=== PATIENT | male | born 2000 | race Caucasian/White ===

== ENCOUNTER 2021-02-06 12:52 | Outpatient (REF) | payer OTHER, SELFPAY ==
[2021-02-06 14:09] LABS: Alanine Aminotransferase 14 U/L (0-40); Albumin Level 5.1 g/dL (3.5-5.0); Alkaline Phosphatase 81 U/L (39-117); Anion Gap 16 (12-20); Aspartate Amino Transferase 15 U/L (5-37); Bilirubin Total 0.6 mg/dL (0.0-1.0); Blood Urea Nitrogen 19 mg/dL (9-16); Calcium 9.6 mg/dL (8.4-10.2); Carbon Dioxide 23 mmol/L (22-29); Chloride 103 mmol/L (96-108); Cholesterol 158 mg/dL; Estimated Glomerular Filt Rate > 60; Glucose Fasting 92 mg/dL (60-99); HDL Cholesterol 35 mg/dL; LDL Cholesterol Calculated 112 mg/dl; Potassium 4.2 mmol/L (3.3-5.1); Sodium 138 mmol/L (135-145); Total Protein 8.3 g/dL (6.5-8.0); Triglycerides 57 mg/dL
[2021-02-06 14:30] LABS: TSH reflex Free T4 1.37 uIU/mL (0.32-4.0)
== END 2021-02-06 12:53 | disposition home or self-care (01) ==
LOC: HO.WFDLDS 12:52
PROVIDERS: Visit Provider Family Medicine
DX: Z00.00 Encounter for general adult medical examination without abnormal findings (principal)
CPT/HCPCS: 36415; 80053; 80061; 84443

== ENCOUNTER 2023-05-16 13:49 | Outpatient (REF) | payer OTHER, SELFPAY | END 2023-05-16 13:50 | disposition home or self-care (01) | LOC: HO.LAB 13:49 | PROVIDERS: PCP Family Medicine; Visit Provider Family Medicine | DX: Z00.00 Encounter for general adult medical examination without abnormal findings (principal); Z20.2 Contact with and (suspected) exposure to infections with a predominantly sexual mode of transmission | CPT/HCPCS: 36415; 80053; 80061; 81003; 84443; 85025 ==

== ENCOUNTER 2023-06-04 16:21 | Outpatient (AMB) | payer OTHER, SELFPAY ==
[2023-06-04 16:26] VITALS: BP 112/64; PULSE 106; RESP 12; TEMP 36.9; O2SAT 98; BMI 26.0
--- NOTE | 2023-06-04 16:26 | A.OFFPC_ITS ---
Vital Signs 06/04/23 16:26 Height 5 ft 9 in Weight 176 lb 4 oz BMI 26.0 BP 112/64 Blood Pressure Location Rt brachial Position Sitting Respiration 12 Pulse 106 H Pulse Source Pulse Oximeter Temp 98.4 F Temp Source Temporal Artery Scan Pulse Oximetry (%) 98 Oxygen Delivery Method Room Air Intake Visit Reasons: f/u medication Intake Note: Patient states they want up the dose or add another medication for his anxiety. Patient's mother states that his panic attacks are getting worse. Patient would like to try Buspirone or low dose Ativan to help if needed. Patient states that he has been having low energy due to medications not being as effective anymore. [facility] Required: No Accompanied by: Mother Allergies diphenhydramine [From BENADRYL] Allergy (Unknown, Verified 06/04/23 16:49) PANIC ATTACK Medication List - Last Reconciled 06/04/23 by Vadim Patel CNP loratadine (Claritin) 10 mg PO DAILY melatonin 3 mg PO BEDTIME PRN sertraline 100 mg PO DAILY 30 days Tobacco use date assessed: 06/04/23 Dental Screening Dental Screen Date: 06/04/23 Did you have a dental visit in the last 12 months?: No Did you have a dental problem in the last 6 months where you did not have access to dental care?: No Was dental information given to patient?: Patient has dentist HPI HPI Comments History of Present Illness Details 23-year-old male, accompanied by his mother, presents for anxiety follow-up. His mother states that the patient has increased panic attacks and low energy level. Patients states that his symptoms have worsened for the past 3 months. His mother states that the patient has severe anxiety and requests buspirone or low-dose Ativan. She notes that the patient has been on a wait list for a psychiatrist. He is not followed by a therapist and requests a referral to connect to one. [facility] Medical History Anxiety Surgical History No pertinent past surgical history Family History Other Mental health disorder Social History (Reviewed 06/04/23 @ 16:34 by JACKI Lou Housing: House Alcohol intake: never Patient Tobacco Use Status: Never used Tobacco e-Cigarette/Vaping Use: Never Used service: No Current occupational status: employed Current occupation: [employer] Current occupational exposures/hazards: No Cognitive needs: Yes Hearing needs: No Vision needs: Yes Questionnaire PHQ-9 Over the last 2 weeks, how often have you been bothered by any of the following problems? 1. Little interest or pleasure in doing things: more than half the days 2. Feeling down, depressed, or hopeless: several days 3. Trouble falling or staying asleep, or sleeping too much: nearly every day 4. Feeling tired or having little energy: nearly every day 5. Poor appetite or overeating: nearly every day 6. Feeling bad about yourself - or that you are a failure or have let yourself or your family down: several days 7. Trouble concentrating on things, such as reading the newspaper or watching television: not at all 8. Moving or speaking so slowly that other people could have noticed. Or the opposite - being so fidgety or restless that you have been moving around a lot more than usual: several days 9. Thoughts that you would be better off or of hurting yourself in some way: not at all Total score: 14 Depression Screening Interpretation: Positive Depression Screening Follow-up: Existing condition and In treatment Source: Developed by Drs. Ravin Bliss, Malaika Willis, Morris Morgan and colleagues, with an educational kiara from [employer] Thrive Questionnaire Date Thrive assessed: 10/30/22 JARED-7 AMB Questionnaire JARED-7 Date JARED - 7 assessed: 06/04/23 Feeling nervous, anxious, or on edge: 2 = More than half the days Not being able to stop or control worryin = More than half the days Worrying too much about different things: 2 = More than half the days Trouble relaxin = Not at all Being so restless that it is hard to sit still: 1 = Several days Becoming easily annoyed or irritable: 0 = Not at all Feeling afraid as if something awful might happen: 0 = Not at all Total JARED-7 score (0-4 normal; 5-9 mild; 10-14 moderate; 15-21 severe): 7 Source: Developed by Drs. Ravin Bliss, Malaika Willis, Morris Morgan and colleagues, with an educational kiara from [employer] Review of Systems Const Details: Const Denies chills, Denies fatigue, Denies fever(s), Denies headache(s) and Denies weakness ENT Denies dizziness and Denies headache(s) Card Denies chest pain, Denies lightheadedness, Denies dyspnea and Denies other (Palpitations) Resp Denies cough, Denies dyspnea, Denies wheezing and Denies other ( shortness of breath) GI Denies abdominal pain, Denies melena, Denies hematochezia, Denies change in bowel habits, Denies dyspepsia and Denies nausea Denies hematuria and Denies dysuria Musc Denies abnormal gait, Denies myalgias, Denies arthralgias, Denies numbness and Denies tingling Skin/Breast Denies rash, Denies unusual bruising and Denies wounds Neuro Denies abnormal gait, Denies dizziness, Denies headache(s), Denies memory loss, Denies numbness, Denies Sensory deficit (Neuro), Denies tingling and Denies weakness Psych Reports anxiety and Reports depression Endo Denies fatigue Aller/Immun Denies wheezing Physical exam (Primary Care) Vital Signs: Last Vital Signs Temp 98.4 F 06/04/23 16:26 Pulse 106 H 06/04/23 16:26 Resp 12 06/04/23 16:26 BP 112/64 06/04/23 16:26 Pulse Ox 98 06/04/23 16:26 Oxygen Delivery Method Room Air 06/04/23 16:26 BMI result Body Mass Index 26.0 Tobacco/Smoking Status: Tobacco use Status Tobacco use date assessed 06/04/23 06/04/23 16:34 Patient Tobacco Use Status Never used Tobacco 06/04/23 16:34 e-Cigarette/Vaping Use Never Used 06/04/23 16:34 PHQ-9: PHQ-9 Score PHQ-9: Total score 14 06/04/23 16:41 Depression Screening Interpretation: Positive Depression Screening Follow-up: Existing condition and In treatment Thrive Assessment: Date of Thrive Assessment Date Thrive assessed 10/30/22 06/04/23 16:34 Const Other: General: no acute distress and well developed Nutritional Appearance: well nourished Orientation/consciousness: patient oriented x3 HENMT Head: Yes normocephalic and Yes atraumatic Eyes General: appearance normal, both eyes and all related structures Pupils: Equal, round and reactive pupils present EOM: EOMs intact bilaterally Resp Effort & Inspection: normal respiratory effort Auscultation: clear to auscultation bilaterally Cardio Rate: regular rate Rhythm: regular rhythm Heart sounds: S1 normal heart sound present, S2 normal heart sound present, no gallops, no murmurs and no rubs GI Palpation (GI): No Abdominal aortic bruit present, Soft to palpation, nontender, No hepatosplenomegaly present and No Rebound tenderness present Auscultation: normal bowel sounds General: Yes no CVA tenderness Back/Spine/Pelvis Back: no CVA tenderness Cervical Spine: cervical ROM normal and No Cervical spine tenderness Thoracic/Lumbar Spine: thoraco-lumbar ROM normal, No pain with thoraco-lumbar ROM, No thoracic spinal tenderness and No lumbar spinal tenderness Extrem General: Yes normal to inspection, No edema and No calf tenderness Skin General: warm and dry. Normal skin color. Normal skin turgor Lesions: no lesions Rashes: no rashes Trauma: no lacerations or abrasions Wounds: no wounds Nails: normal Neuro General: patient oriented x3, gait normal and no focal neuro deficit Cranial nerves: Yes Equal, round and reactive pupils present Cognition (Neuro): normal cognition Gait exam (Neuro): Normal gait present Sensory Exam: No Sensory deficit (Neuro) Psych Appearance: grossly normal Affect: normal affect Attitude: cooperative Thought process: Normal thought process present Assessment and Plan Assessment & Plan (1) Anxiety and depression: Code(s): F41.9 - Anxiety disorder, unspecified; F32.9 - Major depressive disorder, single episode, unspecified Plan: PHQ-9 and JARED-7 scores revealed moderate depression and mild anxiety respectively Buspirone ordered. Take as prescribed Continue to take sertraline as prescribed Routine exercise encouraged Referred to the community navigator to help him connect to a therapist Recent lab results reviewed with the patient; within normal limits Follow-up with PCP in 1 month or return sooner with worsening or new symptoms Verbalized understanding and agreed with the treatment plan Orders: Referrals Nurse Navigator Referral F32.9 - Major depressive disorder, single episode, unspecified, F41.9 - Anxiety disorder, unspecified Medications: New buspirone 7.5 mg PO BID 60 tabs 3RF 30 days Coding Level of Care Code Est Pt Level 3 (15373) Diagnoses Anxiety and depression F41.9; F32.9
== END 2023-06-04 17:08 | disposition home or self-care (01) ==
PROVIDERS: PCP Family Medicine; Visit Provider Nurse Practitioner Family
DX: F41.9 Anxiety disorder, unspecified (principal); F33.9 Major depressive disorder, recurrent, unspecified
CPT/HCPCS: 99213

== ENCOUNTER 2023-07-03 10:18 | Outpatient (AMB) | payer OTHER, SELFPAY ==
--- NOTE | 2023-07-02 14:32 | ...WebTmpl.AM.PHNO ---
JARED-7 AMB Questionnaire JARED-7 Date JARED - 7 assessed: 07/02/23 Feeling nervous, anxious, or on edge: 2 = More than half the days Not being able to stop or control worryin = Nearly every day Worrying too much about different things: 2 = More than half the days Trouble relaxin = More than half the days Being so restless that it is hard to sit still: 1 = Several days Becoming easily annoyed or irritable: 1 = Several days Feeling afraid as if something awful might happen: 1 = Several days Total JARED-7 score (0-4 normal; 5-9 mild; 10-14 moderate; 15-21 severe): 12 Source: Developed by Drs. Ravin Bliss, Malaika Willis, Morris Morgan and colleagues, with an educational kiara from [employer]. PHQ-9 Over the last 2 weeks, how often have you been bothered by any of the following problems? 1. Little interest or pleasure in doing things: several days 2. Feeling down, depressed, or hopeless: not at all 3. Trouble falling or staying asleep, or sleeping too much: several days (sleeping too much) 4. Feeling tired or having little energy: several days 5. Poor appetite or overeating: more than half the days 6. Feeling bad about yourself - or that you are a failure or have let yourself or your family down: several days 7. Trouble concentrating on things, such as reading the newspaper or watching television: not at all 8. Moving or speaking so slowly that other people could have noticed. Or the opposite - being so fidgety or restless that you have been moving around a lot more than usual: several days 9. Thoughts that you would be better off or of hurting yourself in some way: not at all Total score: 7 Depression Screening Interpretation: Positive Source: Developed by Drs. Ravin Bliss, Morris Steiner and colleagues, with an educational kiara from [employer].
--- NOTE | 2023-07-03 11:04 | MHC.PC.OV ---
Vital Signs 07/03/23 11:26 Height 5 ft 9 in Weight 178 lb BMI 26.3 BP 128/80 Blood Pressure Location Lt brachial Pulse 91 Pulse Source Pulse Oximeter Pulse Oximetry (%) 97 Oxygen Delivery Method Room Air Intake Visit Reasons: f/u anxiety/depression Allergies diphenhydramine [From BENADRYL] Allergy (Unknown, Verified 07/03/23 14:59) PANIC ATTACK Medication List - Last Reconciled 07/03/23 by Vadim Patel CNP buspirone 7.5 mg PO BID 90 days loratadine (Claritin) 10 mg PO DAILY melatonin 3 mg PO BEDTIME PRN sertraline 100 mg PO DAILY 90 days Tobacco use date assessed: 06/04/23 HPI HPI Comments History of Present Illness Details 23-year-old male, accompanied by his mother, presents for anxiety and depression follow-up. He is on sertraline and Melatonin which he notes he has been taking as prescribed. He notes that he noticed some improvement of his anxiety symptoms. He prefers to continue with current treatment regimen. He states he is expecting to be contacted by [place] to connect to a therapist. He notes that he did not show up for jury duty in August 2022 and has been summoned for a hearing regarding this. He notes he was informed to request a letter from his PCP explaining medical reasons for not showing. ON LICENSE OF [facility] Medical History Anxiety Surgical History No pertinent past surgical history Family History Other Mental health disorder Social History Housing: House Alcohol intake: never Patient Tobacco Use Status: Never used Tobacco e-Cigarette/Vaping Use: Never Used service: No Current occupational status: employed Current occupation: [employer] Current occupational exposures/hazards: No Cognitive needs: Yes Hearing needs: No Vision needs: Yes Questionnaire PHQ-9 Over the last 2 weeks, how often have you been bothered by any of the following problems? 1. Little interest or pleasure in doing things: several days 2. Feeling down, depressed, or hopeless: not at all 3. Trouble falling or staying asleep, or sleeping too much: several days 4. Feeling tired or having little energy: several days 5. Poor appetite or overeating: more than half the days 6. Feeling bad about yourself - or that you are a failure or have let yourself or your family down: several days 7. Trouble concentrating on things, such as reading the newspaper or watching television: not at all 8. Moving or speaking so slowly that other people could have noticed. Or the opposite - being so fidgety or restless that you have been moving around a lot more than usual: several days 9. Thoughts that you would be better off or of hurting yourself in some way: not at all Total score: 7 Depression Screening Interpretation: Positive Depression Screening Follow-up: Existing condition and In treatment 17262 - PHQ-9 Billing: Yes Source: Developed by Drs. Ravin Bliss, Malaika Willis, Morris Morgan and colleagues, with an educational kiara from [employer]. Thrive Questionnaire Date Thrive assessed: 10/30/22 JARED-7 AMB Questionnaire JARED-7 Date JARED - 7 assessed: 07/03/23 Feeling nervous, anxious, or on edge: 2 = More than half the days Not being able to stop or control worryin = Nearly every day Worrying too much about different things: 2 = More than half the days Trouble relaxin = More than half the days Being so restless that it is hard to sit still: 1 = Several days Becoming easily annoyed or irritable: 1 = Several days Feeling afraid as if something awful might happen: 1 = Several days Total JARED-7 score (0-4 normal; 5-9 mild; 10-14 moderate; 15-21 severe): 12 Source: Developed by Drs. Ravin Bliss, Malaika Willis, Morris Morgan and colleagues, with an educational kiara from [employer]. JARED-7 Assessment Billing JARED-7 Assessment Tool: JARED-7 Assessment 82286 Review of Systems Const Details: Const Denies chills, Denies fatigue, Denies fever(s), Denies headache(s) and Denies weakness ENT Denies dizziness and Denies headache(s) Card Denies chest pain, Denies lightheadedness, Denies dyspnea and Denies other (Palpitations) Resp Denies cough, Denies dyspnea, Denies wheezing and Denies other ( shortness of breath) GI Denies abdominal pain, Denies melena, Denies hematochezia, Denies change in bowel habits, Denies dyspepsia and Denies nausea Denies hematuria and Denies dysuria Musc Denies abnormal gait, Denies myalgias, Denies arthralgias, Denies numbness and Denies tingling Skin/Breast Denies rash, Denies unusual bruising and Denies wounds Neuro Denies abnormal gait, Denies dizziness, Denies headache(s), Denies memory loss, Denies numbness, Denies Sensory deficit (Neuro), Denies tingling and Denies weakness Psych Reports anxiety, Reports depression, Denies memory loss Endo Denies cold intolerance, Denies fatigue, Denies heat intolerance, Denies polydipsia and Denies polyuria Aller/Immun Denies wheezing Physical exam (Primary Care) Vital Signs: Last Vital Signs Pulse 91 07/03/23 11:26 BP 128/80 07/03/23 11:26 Pulse Ox 97 07/03/23 11:26 Oxygen Delivery Method Room Air 07/03/23 11:26 BMI result Body Mass Index 26.3 Tobacco/Smoking Status: Tobacco use Status Tobacco use date assessed 06/04/23 07/03/23 11:04 Patient Tobacco Use Status Never used Tobacco 07/03/23 11:04 e-Cigarette/Vaping Use Never Used 07/03/23 11:04 PHQ-9: PHQ-9 Score PHQ-9: Total score 7 07/03/23 11:28 Depression Screening Interpretation: Positive Depression Screening Follow-up: Existing condition and In treatment Thrive Assessment: Date of Thrive Assessment Date Thrive assessed 10/30/22 07/03/23 11:04 Const Other: General: no acute distress and well developed Nutritional Appearance: well nourished Orientation/consciousness: patient oriented x3 HENMT Head: Yes normocephalic and Yes atraumatic Eyes General: appearance normal, both eyes and all related structures Pupils: Equal, round and reactive pupils present EOM: EOMs intact bilaterally Resp Effort & Inspection: normal respiratory effort Auscultation: clear to auscultation bilaterally Cardio Rate: regular rate Rhythm: regular rhythm Heart sounds: S1 normal heart sound present, S2 normal heart sound present, no gallops, no murmurs and no rubs GI Palpation (GI): No Abdominal aortic bruit present, Soft to palpation, nontender, No hepatosplenomegaly present and No Rebound tenderness present Auscultation: normal bowel sounds General: Yes no CVA tenderness Back/Spine/Pelvis Back: no CVA tenderness Cervical Spine: cervical ROM normal and No Cervical spine tenderness Thoracic/Lumbar Spine: thoraco-lumbar ROM normal, No pain with thoraco-lumbar ROM, No thoracic spinal tenderness and No lumbar spinal tenderness Extrem General: Yes normal to inspection, No edema and No calf tenderness Skin General: warm and dry. Normal skin color. Normal skin turgor Lesions: no lesions Rashes: no rashes Trauma: no lacerations or abrasions Wounds: no wounds Nails: normal Neuro General: patient oriented x3, gait normal and no focal neuro deficit Cranial nerves: Yes Equal, round and reactive pupils present Cognition (Neuro): normal cognition Gait exam (Neuro): Normal gait present Sensory Exam: No Sensory deficit (Neuro) Psych Appearance: grossly normal Affect: normal affect Attitude: cooperative Thought process: Normal thought process present Assessment and Plan Assessment & Plan (1) Anxiety and depression: Code(s): F41.9 - Anxiety disorder, unspecified; F32.9 - Major depressive disorder, single episode, unspecified Plan: PHQ-9 and JARED-7 scores revealed moderate depression and mild anxiety respectively Continue with current treatment regimen Routine exercise encouraged Requests for letter for absence for jury duty last year provided to the patient's PCP who would complete the paperwork Follow-up in 3 months or return sooner with new or worsening symptoms Verbalized understanding and agreed with treatment plan. Medications: Changed From buspirone 7.5 mg PO BID 60 tabs 3RF 30 days To buspirone 7.5 mg PO BID 180 tabs 1RF 90 days From sertraline 100 mg PO DAILY 30 tabs 0RF 30 days To sertraline 100 mg PO DAILY 90 tabs 1RF 90 days Coding Level of Care Code Est Pt Level 3 (09981) Diagnoses Anxiety and depression F41.9; F32.9 Additional Codes JARED-7 Assessment Billing - JARED-7 Assessment Tool: JARED-7 Assessment 37280 ([id number])
[2023-07-03 11:26] VITALS: BP 128/80; PULSE 91; O2SAT 97; BMI 26.3
== END 2023-07-03 11:21 | disposition home or self-care (01) ==
PROVIDERS: PCP Family Medicine; Visit Provider Nurse Practitioner Family
DX: F41.9 Anxiety disorder, unspecified (principal); F32.9 Major depressive disorder, single episode, unspecified
CPT/HCPCS: 99213

== ENCOUNTER 2023-10-01 16:34 | Outpatient (AMB) | payer OTHER, SELFPAY ==
[2023-10-01 16:38] VITALS: BP 116/62; PULSE 121; RESP 13; O2SAT 99; BMI 26.6
--- NOTE | 2023-10-01 16:38 | A.OFFPC_ITS ---
Vital Signs 10/01/23 16:38 Height 5 ft 9 in Weight 180 lb BMI 26.6 BP 116/62 Blood Pressure Location Lt brachial Position Sitting Respiration 13 Pulse 121 H Pulse Source Pulse Oximeter Pulse Oximetry (%) 99 Oxygen Delivery Method Room Air Intake Visit Reasons: f/u anxiety/depression Intake Note: Patient reports he has no concerns for todays visit. Upsetter Required: No Allergies diphenhydramine [From BENADRYL] Allergy (Unknown, Verified 10/01/23 16:46) PANIC ATTACK Tobacco use date assessed: 06/04/23 HPI f/u anxiety/depression HPI Details 23 y/o male presents to f/u anxiety/depr ession. Had seen Vadim Patel 07/03/23 for this - buspirone increased to 7.5mg b.i.d. and sertraline 100mg daily. He reports he is doing well with his medication regimen. He does have a therapist. [facility] Medical History Anxiety Surgical History No pertinent past surgical history Family History Other Mental health disorder Housing: House Alcohol intake: never Patient Tobacco Use Status: Never used Tobacco e-Cigarette/Vaping Use: Never Used service: No Current occupational status: employed Current occupation: [employer] Current occupational exposures/hazards: No Cognitive needs: Yes Hearing needs: No Vision needs: Yes Questionnaire PHQ-9 Over the last 2 weeks, how often have you been bothered by any of the following problems? 1. Little interest or pleasure in doing things: more than half the days 2. Feeling down, depressed, or hopeless: not at all 3. Trouble falling or staying asleep, or sleeping too much: more than half the days 4. Feeling tired or having little energy: not at all 5. Poor appetite or overeating: more than half the days 6. Feeling bad about yourself - or that you are a failure or have let yourself or your family down: several days 7. Trouble concentrating on things, such as reading the newspaper or watching television: not at all 8. Moving or speaking so slowly that other people could have noticed. Or the opposite - being so fidgety or restless that you have been moving around a lot more than usual: several days 9. Thoughts that you would be better off or of hurting yourself in some way: not at all Total score: 8 Depression Screening Interpretation: Positive Depression Screening Follow-up: In treatment Depression Screening Done: Yes 69171 - PHQ-9 Billing: Yes Source: Developed by Drs. Ravin Bliss, Malaika Willis, Morris Morgan and colleagues, with an educational kiara from [employer]. Thrive Questionnaire Date Thrive assessed: 10/30/22 JARED-7 AMB Questionnaire JARED-7 Date JARED - 7 assessed: 10/01/23 Feeling nervous, anxious, or on edge: 1 = Several days Not being able to stop or control worryin = Several days Worrying too much about different things: 1 = Several days Trouble relaxin = Not at all Being so restless that it is hard to sit still: 0 = Not at all Becoming easily annoyed or irritable: 1 = Several days Feeling afraid as if something awful might happen: 0 = Not at all Total JARED-7 score (0-4 normal; 5-9 mild; 10-14 moderate; 15-21 severe): 4 Source: Developed by Drs. Ravin Bliss, Malaika Willis, Morris Morgan and colleagues, with an educational kiara from [employer]. JARED-7 Assessment Billing JARED-7 Assessment Tool: JARED-7 Assessment 44496 Review of Systems Const Denies chills, Denies fatigue, Denies fever(s), Denies headache(s) and Denies weakness ENT Denies dizziness and Denies headache(s) Card Denies dyspnea Resp Denies cough, Denies dyspnea, Denies wheezing and Denies other (shortness of breath) Musc Denies numbness and Denies tingling Neuro Denies dizziness, Denies headache(s), Denies numbness, Denies tingling and Denies weakness Psych Reports anxiety and Reports depression Endo Denies fatigue Aller/Immun Denies wheezing Physical exam (Primary Care) Vital Signs: Last Vital Signs Pulse 121 H 10/01/23 16:38 Resp 13 10/01/23 16:38 BP 116/62 10/01/23 16:38 Pulse Ox 99 10/01/23 16:38 Oxygen Delivery Method Room Air 10/01/23 16:38 BMI result Body Mass Index 26.6 Tobacco/Smoking Status: Tobacco use Status Tobacco use date assessed 06/04/23 10/01/23 16:39 Patient Tobacco Use Status Never used Tobacco 10/01/23 16:39 e-Cigarette/Vaping Use Never Used 10/01/23 16:39 PHQ-9: PHQ-9 Score PHQ-9: Total score 8 10/01/23 16:45 Depression Screening Interpretation: Positive Depression Screening Follow-up: In treatment Thrive Assessment: Date of Thrive Assessment Date Thrive assessed 10/30/22 10/01/23 16:39 Const General: well developed; No acute distress Nutritional Appearance: well nourished Orientation/consciousness: patient oriented x3 HENMT Head: Yes normocephalic and Yes atraumatic Eyes General: appearance normal, both eyes and all related structures Pupils: Equal, round and reactive pupils present EOM: EOMs intact bilaterally Resp Effort & Inspection: normal respiratory effort Neuro General: patient oriented x3 and gait normal Cranial nerves: Yes Equal, round and reactive pupils present Psych Affect: normal affect Assessment and Plan Assessment & Plan (1) Anxiety and depression: Code(s): F41.9 - Anxiety disorder, unspecified; F32.9 - Major depressive disorder, single episode, unspecified Plan: Much?Improved?and?patient?has?no?complaints?today. Has?therapist?and?is?taking?medications?as?prescribed Continue?current?medication?regimen Orders: Orders Comprehensive Albers. Panel Fast Today Z00.00 - Encounter for general adult medical examination without abnormal findings Complete Blood Count Auto Diff Today Z00.00 - Encounter for general adult medical examination without abnormal findings TSH reflex Free T4 Today Z00.00 - Encounter for general adult medical examin ation without abnormal findings UA and rflx microscopic Today Z00.00 - Encounter for general adult medical examination without abnormal findings Vitamin D 25-OH Total Today E55.9 - Vitamin D deficiency, unspecified Lipid Panel Today Z00.00 - Encounter for general adult medical examination without abnormal findings Microalbumin, Random (w Creat) Today I10 - Essential (primary) hypertension Medications: Refilled buspirone 7.5 mg PO BID 180 tabs 2RF 90 days sertraline 100 mg PO DAILY 90 tabs 2RF 90 days Coding Level of Care Code Est Pt Level 3 (73640) Diagnoses Anxiety and depression F41.9; F32.9 Additional Codes JAERD-7 Assessment Billing - JARED-7 Assessment Tool: JARED-7 Assessment 54029 ([id number])
== END 2023-10-01 16:55 | disposition home or self-care (01) ==
PROVIDERS: PCP Family Medicine; Visit Provider Family Medicine
DX: F41.9 Anxiety disorder, unspecified (principal); F32.9 Major depressive disorder, single episode, unspecified
CPT/HCPCS: 96127; 99213

== ENCOUNTER 2024-03-17 08:14 | Outpatient (REF) | payer BC, SELFPAY ==
[2024-03-17 11:44] LABS: Appearance Urine Clear; Color Urine Yellow; Glucose Urine UA Negative (Negative); Leukocyte Esterase Urine Negative (Negative); Nitrite Urine Negative (Negative); Specific Gravity - Urine 1.015 (1.005-1.025); Urine Blood Negative (Negative); Urine Ketones Trace mg/dL (Negative); Urine Protein Negative (Neg-Trace)
[2024-03-17 11:52] LABS: MANUAL DIFF FLAG NO
[2024-03-17 12:05] LABS: Basophils Absolute Auto 0.1 X10*3/uL (0.0-0.2); Basophils Percent Auto 0.8 % (0-2); Eosinophils Absolute Auto 0.1 X10*3/uL (0.0-0.4); Eosinophils Percent Auto 1.3 % (0-4); Hematocrit 44.5 % (42.0-52.0); Hemoglobin 14.9 g/dl (14.0-18.0); Imm Gran Abs Auto 0.04 X10*3/uL (0.00-0.03); Imm Gran Pct Auto 0.5 % (0.0-0.4); Lymphocytes Absolute Auto 2.3 X10*3/uL (1.2-4.9); Mean Corpuscular HGB Conc 33.5 g/dl (31.0-36.0); Mean Corpuscular Hemoglobin 29.9 pg (27.0-33.0); Mean Corpuscular Volume 89.4 fL (80.0-98.0); Mean Platelet Volume 10.1 fL (9.4-12.4); Monocytes Absolute Auto 0.6 X10*3/uL (0.1-1.2); Monocytes Percent Auto 7.3 % (2-11); Neutrophils Absolute Auto 5.6 x10*3/uL (2.0-8.3); Neutrophils Percent Auto 64.1 % (45-73); Platelet Count 257 X10*3/uL (160-400); Red Blood Count 4.98 X10*6/uL (4.60-5.80); Red Cell Distribution Width 12.6 % (11.0-16.0); White Blood Count 8.7 X10*3/uL (4.8-10.8)
[2024-03-17 12:27] LABS: Creatinine Urine 230.13 mg/dL; Microalbum/Creatinine Ratio Ur 2.6 ug/mg cr (<30)
[2024-03-17 12:38] LABS: Alanine Aminotransferase 13 U/L (0-40); Albumin Level 4.9 g/dL (3.5-5.0); Alkaline Phosphatase 73 U/L (39-117); Anion Gap 15 (12-20); Aspartate Amino Transferase 13 U/L (5-37); Bilirubin Total 0.4 mg/dL (0.0-1.0); Blood Urea Nitrogen 10 mg/dL (9-16); Carbon Dioxide 24 mmol/L (22-29); Chloride 103 mmol/L (96-108); Cholesterol 154 mg/dL (<200); Estimated Glomerular Filt Rate > 60; Glucose Fasting 92 mg/dL (60-99); HDL Cholesterol 33 mg/dL (>40); LDL Cholesterol Calculated 104 mg/dL (<100); Sodium 138 mmol/L (135-145); Total Protein 8.4 g/dL (6.5-8.0); Triglycerides 85 mg/dL (<150)
[2024-03-17 12:54] LABS: Vitamin D 25-OH Total 13.5 ng/mL (>30)
== END 2024-03-17 08:15 | disposition home or self-care (01) ==
LOC: HO.WFDLDS 08:14
PROVIDERS: Visit Provider Family Medicine
DX: Z00.00 Encounter for general adult medical examination without abnormal findings (principal); E55.9 Vitamin D deficiency, unspecified; I10 Essential (primary) hypertension
CPT/HCPCS: 36415; 80053; 80061; 81003; 82043; 82306; 82570; 84443; 85025

== ENCOUNTER 2024-03-20 13:59 | Outpatient (AMB) | payer BC, SELFPAY ==
--- NOTE | 2024-03-20 14:03 | A.OFFPC_ITS ---
Vital Signs 03/20/24 14:07 Height 5 ft 9 in Weight 173 lb 8 oz BMI 25.6 BP 114/86 Blood Pressure Location Lt brachial Position Sitting Respiration 16 Pulse 97 Temp 98.2 F Temp Source Oral Pulse Oximetry (%) 99 Oxygen Delivery Method Room Air Intake Visit Reasons: CPE with f/u labs and health maint. Intake Note: Physical and lab results. Hasnt started the vitamin D yet. Craps Manager Required: No Allergies diphenhydramine [From BENADRYL] Allergy (Unknown, Verified 03/20/24 14:03) PANIC ATTACK Medication List - Last Reconciled 03/20/24 by Solo Noonan MD buspirone 7.5 mg PO BID 90 days cholecalciferol (vitamin D3) 1,250 mcg PO QWEEK 28 days loratadine (Claritin) 10 mg PO DAILY melatonin 3 mg PO BEDTIME PRN sertraline 100 mg PO DAILY 90 days Tobacco use date assessed: 03/20/24 Dental Screening Dental Screen Date: 03/20/24 Did you have a dental visit in the last 12 months?: No Did you have a dental problem in the last 6 months where you did not have access to dental care?: No Was dental information given to patient?: Patient has dentist HPI CPE with f/u labs and health maint. HPI Details Patient?presents?for?complete?physical Reviewed?labs?with?patient Significantly?low?vitamin-D Low?HDL His?other?labs?were?okay Low vit D & sent Script - hasn't started it yet Not?exercising?much PFSH Medical History Anxiety Surgical History No pertinent past surgical history Family History Other Mental health disorder Social History Housing: House Alcohol intake: never Patient Tobacco Use Status: Never used Tobacco e-Cigarette/Vaping Use: Never Used Second Hand Smoke Exposure: Yes (currently and in the past ) service: No Current occupational status: employed Current occupation: [employer] Current occupational exposures/hazards: No Cognitive needs: Yes Hearing needs: No Vision needs: Yes Questionnaire Thrive Questionnaire Date Thrive assessed: 10/30/22 AUDIT C Alcohol Use Questionnaire (AUDIT-C) 1. How often do you have a drink containing alcohol?: Never 3. How often do you have six or more drinks on one occasion?: Never Total Score: 0 JARED-7 AMB Questionnaire JARED-7 Date JARED - 7 assessed: 10/01/23 Source: Developed by Drs. Ravin Bliss, Malaika Willis, Morris Morgan and colleagues, with an educational kiara from [employer]. Review of Systems Const Denies chills, Denies fatigue, Denies fever(s), Denies headache(s) and Denies weakness Eyes Denies change in vision ENT Denies dizziness, Denies headache(s), Denies hearing loss, Denies nasal congestion, Denies sinus pain, Denies sinus pressure and Denies sore throat Card Denies chest pain, Denies lightheadedness, Denies dyspnea and Denies other (palpitations) Resp Denies cough, Denies dyspnea and Denies wheezing GI Denies abdominal pain, Denies melena, Denies hematochezia, Denies change in bowel habits, Denies dyspepsia and Denies nausea Denies hematuria and Denies dysuria Musc Denies abnormal gait, Denies myalgias, Denies arthralgias, Denies numbness and Denies tingling Skin/Breast Denies rash, Denies unusual bruising and Denies wounds Neuro Denies abnormal gait, Denies dizziness, Denies headache(s), Denies memory loss, Denies numbness, Denies Sensory deficit (Neuro), Denies tingling and Denies weakness Psych Details: Ongoing?anxiety.??Sertraline?is?helping?some?in?so?as?BuSpar?but?he?would?li ke?to?increase?sertraline.??Also?gets?breakthrough?anxiety. Reports anxiety, Denies depression and Denies memory loss Endo Denies cold intolerance, Denies fatigue, Denies heat intolerance, Denies polydipsia and Denies polyuria Gil/Lymph Denies easy bleeding and Denies easy bruising Aller/Immun Denies wheezing Physical exam (Primary Care) Vital Signs: Last Vital Signs Temp 98.2 F 03/20/24 14:07 Pulse 97 03/20/24 14:07 Resp 16 03/20/24 14:07 BP 114/86 03/20/24 14:07 Pulse Ox 99 03/20/24 14:07 Oxygen Delivery Method Room Air 03/20/24 14:07 BMI result Body Mass Index 25.6 Tobacco/Smoking Status: Tobacco use Status Tobacco use date assessed 03/20/24 03/20/24 14:10 Patient Tobacco Use Status Never used Tobacco 03/20/24 14:10 e-Cigarette/Vaping Use Never Used 03/20/24 14:10 Thrive Assessment: Date of Thrive Assessment Date Thrive assessed 10/30/22 03/20/24 14:10 Const General: no acute distress, well developed, alert and awake Nutritional Appearance: well nourished Orientation/consciousness: patient oriented x3 HENMT Head: Yes normocephalic and Yes atraumatic Ears: hearing grossly normal bilaterally and TM's normal bilaterally General nose exam: Normal external nose present and Normal nares present Mouth: Normal oral and palatal mucosa present and moist mucous membranes Teeth and gingiva: dentition normal Throat: Yes posterior oropharynx normal Eyes Pupils: Equal, round and reactive pupils present and Pupil accommodation reflex normal EOM: EOMs intact bilaterally Neck Neck: Yes normal visual inspection, Yes no lymphadenopathy and Yes trachea midline Thyroid: Thyroid normal Carotids: no bruits Lymphatic: no lymphadenopathy noted Chest Chest palpation & inspection: normal inspection of the chest Resp Effort & Inspection: normal respiratory effort Auscultation: clear to auscultation bilaterally Cardio Rate: regular rate Rhythm: regular rhythm Heart sounds: S1 normal heart sound present, S2 normal heart sound present, no gallops, no murmurs and no rubs Bruits: no abdominal aortic bruits and no carotid bruits GI Palpation (GI): No Abdominal aortic bruit present, Soft to palpation, nontender, No hepatosplenomegaly present and No Rebound tenderness present Auscultation: normal bowel sounds General: Yes no CVA tenderness Back/Spine/Pelvis Back: no CVA tenderness Cervical Spine: cervical ROM normal and No Cervical spine tenderness Thoracic/Lumbar Spine: thoraco-lumbar ROM normal, No pain with thoraco-lumbar ROM, No thoracic spinal tenderness and No lumbar spinal tenderness Skin Other: Acne?at?chin?and?on?back Lesions: no lesions Rashes: no rashes Trauma: no lacerations or abrasions Wounds: no wounds Nails: normal Neuro General: patient oriented x3, gait normal and CN's II-XI intact bilaterally Cranial nerves: Yes Equal, round and reactive pupils present Cognition (Neuro): normal cognition Gait exam (Neuro): Normal gait present Motor exam (neuro): 5/5 motor strength present throughout Sensory Exam: No Sensory deficit (Neuro) Deep tendon reflexes (DTR's): Right patellar reflex intensity grade: 2+ and Left patellar reflex intensity grade: 2+ Extrem General: Yes normal to inspection and No edema Psych Appearance: grossly normal Affect: Anxious affect present Attitude: cooperative Thought process: Normal thought process present Assessment and Plan Assessment & Plan (1) Adult general medical exam: Code(s): Z00.00 - Encounter for general adult medical examination without abnormal findings Plan: 24-year-old?male?presents?for?complete?physical?exam Encouraged?healthy?diet?with?active?lifestyle?and?plenty?of?exercise (2) Low HDL (under 40): Code(s): E78.6 - Lipoprotein deficiency Plan: Encouraged?increased?exercise Will?recheck?in?about?3?months (3) Low vitamin D level: Code(s): R79.89 - Other specified abnormal findings of blood chemistry Plan: Significantly?low?vitamin- D?level?and?I?sent?script?for?this.??He?has?not?started?it?yet Will?follow-up?in?about?3?months (4) Acne: Code(s): L70.9 - Acne, unspecified Plan: Follicular?acne?at?chin?and?also?has?acne?on?his?back. Will?refer?him?to?Dermatology Meantime?he?can?try?Hibiclens?OTC (5) Anxiety and depression: Code(s): F41.9 - Anxiety disorder, unspecified; F32.9 - Major depressive disorder, single episode, unspecified Plan: Sertraline?and?BuSpar?are?helping?but?he?feels?that?the?sertraline?could?be?doin g?more?so?we?will?increase?this?from?100?mg?daily?to?150?mg?daily Getting?some?breakthrough?anxiety?as?well?and?we?will?add?lorazepam?0.5?mg?p.r.n ..??#12?tabs?per?30?days.??Discussed?risks/benefits?with?patient Orders: Orders Vitamin D 25-OH Total Today E55.9 - Vitamin D deficiency, unspecified, R79.89 - Other specified abnormal findings of blood chemistry Lipid Panel Today E78.6 - Lipoprotein deficiency, Z00.00 - Encounter for general adult medical examination without abnormal findings Comprehensive [place]. Panel Fast Today E78.6 - Lipoprotein deficiency, Z00.00 - Encounter for general adult medical examination without abnormal findings Medications: New lorazepam 0.5 mg PO DAILY 30 days PRN 12 tabs 0RF anxiety Changed From sertraline 100 mg PO DAILY 90 days 90 tabs 2RF To sertraline 150 mg (1.5 x 100 mg) PO DAILY 90 days 135 tabs 2RF Coding Level of Care Code Est Pt Level 3 (99521) Est Pt Prev Care 18-39y(48862) Diagnoses Adult general medical exam Z00.00 Low HDL (under 40) E78.6 Low vitamin D level R79.89 Acne L70.9 Anxiety and depression F41.9; F32.9
[2024-03-20 14:07] VITALS: BP 114/86; PULSE 97; RESP 16; TEMP 36.8; O2SAT 99; BMI 25.6
== END 2024-03-20 14:46 | disposition home or self-care (01) ==
PROVIDERS: PCP Family Medicine; Visit Provider Family Medicine
DX: Z00.00 Encounter for general adult medical examination without abnormal findings (principal); E78.6 Lipoprotein deficiency; R79.89 Other specified abnormal findings of blood chemistry; L70.9 Acne, unspecified; F41.9 Anxiety disorder, unspecified; F32.9 Major depressive disorder, single episode, unspecified
CPT/HCPCS: 99213; 99395